=== PATIENT | male | born 1975 ===

== ENCOUNTER 2023-02-25 06:26 | Day surgery (SDC) | payer BC ==
[~2023-02-25 06:26] MED LIST: Dextrose 5%-0.45% NaCl 1,000 ML IV SCH
[2023-02-25] MEDS ORDERED: Midazolam 1 MG/ML 2 ML SDV ONE (07:15)
[2023-02-25] MEDS ORDERED: fentaNYL 100 MCG/2 ML SDV ONE (07:16)
[2023-02-25] MEDS ORDERED: fentaNYL 100 MCG/2 ML SDV IV ONE ×3 (07:22→07:31)
[2023-02-25] MEDS ORDERED: Midazolam 1 MG/ML 2 ML SDV IV ONE ×6 (07:23→07:30)
[2023-02-25 08:58] VITALS: BP 109/76; PULSE 65
== END 2023-02-25 09:03 | disposition home or self-care (01) ==
LOC: DL.ENDO 06:26
PROVIDERS: ATTEND Internal Medicine Gastroenterology
DX: Z12.11 Encounter for screening for malignant neoplasm of colon (principal); I10 Essential (primary) hypertension; N02.B1 Recurrent and persistent immunoglobulin A nephropathy with glomerular lesion; F17.210 Nicotine dependence, cigarettes, uncomplicated; Z68.41 Body mass index [BMI] 40.0-44.9, adult; E66.09 Other obesity due to excess calories; Z88.8 Allergy status to other drugs, medicaments and biological substances
CPT/HCPCS: J2250; J3010; J7042